=== PATIENT | male | born 1965 | race Caucasian/White ===

== ENCOUNTER 2016-11-22 17:35 | Emergency (ER) | payer OTHER ==
[~2016-11-22 17:35] MED LIST: ASPIR 8181 MG PO; ASPIR-LOW81 MG PO; BLOOD PRESSURE MED; CLARITIN10 M2 PO; DESYREL 50 MG T50 MG PO; FENOFIBRATE PO; FISH OIL; FISH OIL 1,0001 EAC5 PO; GLUCOPHAGE; GLUCOPHAGE500 MG PO; GLUCOTROL5 MG PO; HUMALOG100 UNIT/1 SQ; HYDROXYZINE PAM25 MG PO; IMDUR ER TAB 3030 MG PO; KLONOPIN TAB 00.5 MG PO; LANTUS INS100 UTS/M1 SQ; LANTUS100 UNIT/1 SQ; LIPITOR TAB 2020 MG PO; LISINOPRIL20 MG PO; NEURONTIN800 MG PO; NORCO 10-325 T1 EACH PO; NORVASC 5 MG TAB5 MG PO; PROTONIX40 MG PO; TOPROL XL 25 MG25 MG PO; VISTARIL; ZANTAC300 MG PO; ZESTRIL20 MG PO; ZOCOR40 MG PO; ZOLOFT25 MG PO
[2016-11-22 18:35] LABS: HEMOGLOBIN 15.1 gm/dl (14.0-17.5); RED BLOOD COUNT 4.79 M/UL (4.20-5.50); WHITE BLOOD COUNT 9.4 K/UL (4.5-11.0)
[2016-11-22 18:54] LABS: BUN/CREATININE RATIO 19 (0-10)
[2017-03-09] MEDS ORDERED: TOPROL XL25 MG PO (18:17)
[2017-03-09] MEDS ORDERED: LIPITOR TAB 2020 MG PO (18:22)
[2017-03-09] MEDS ORDERED: LANTUS100 UNIT/1 SQ (18:23)
[2017-05-07] MEDS ORDERED: NORCO 7.5-3251 EACH PO (20:24)
[2017-05-07] MEDS ORDERED: ZOCOR 40 MG TAB40 MG PO (20:25)
[2017-05-07] MEDS ORDERED: ZANTAC 150 MG150 MG PO (20:31)
[2017-05-07] MEDS ORDERED: LOPRESSOR 25 MG25 MG PO (20:32)
[2017-05-07] MEDS ORDERED: FENOFIBRATE160 MG PO (20:32)
[2017-05-07] MEDS ORDERED: NORVASC 5 MG TAB5 MG PO (20:32)
[2017-05-07] MEDS ORDERED: TRAZODONE HCL50 MG PO (20:34)
[2017-05-07] MEDS ORDERED: LANTUS100 UNIT/1 SQ (20:36)
[2017-05-07] MEDS ORDERED: BASAGLAR (20:37)
[2017-05-10] MEDS ORDERED: LIPITOR TAB 2020 MG PO (13:57)
[2017-05-10] MEDS ORDERED: IMDUR ER TAB 3030 MG PO (14:00)
[2017-05-10] MEDS ORDERED: BRILINTA90 MG PO (14:02)
== END 2016-11-23 00:45 | disposition home or self-care (01) ==
LOC: ER1 17:35
PROVIDERS: Physician Assistant
DX: S20.211A Contusion of right front wall of thorax, initial encounter (principal); S60.222A Contusion of left hand, initial encounter; E11.65 Type 2 diabetes mellitus with hyperglycemia; I10 Essential (primary) hypertension; I51.9 Heart disease, unspecified; Z90.49 Acquired absence of other specified parts of digestive tract; Z88.5 Allergy status to narcotic agent; Z88.8 Allergy status to other drugs, medicaments and biological substances; Z79.4 Long term (current) use of insulin; V86.99XA Unspecified occupant of other special all-terrain or other off-road motor vehicle injured in nontraffic accident, initial encounter; Y93.89 Activity, other specified; Y92.009 Unspecified place in unspecified non-institutional (private) residence as the place of occurrence of the external cause
CPT/HCPCS: 36415; 70450; 71010; 71260; 72125; 72128; 72131; 72170; 73030; 73110; 73130; 80053; 81001; 82550; 82553; 82962; 83874; 84484; 85025; 93005; 96372; 96374; 96375; 96376; 99285; J1815; J2270; J2405; J7050; Q9962